=== PATIENT | female | born 1950 | race American Indian/Alaskan Native ===

== ENCOUNTER 2019-05-17 09:10 | Outpatient (CLI) | payer MEDICARE ==
--- NOTE | 2019-05-17 12:29 | PET Report ---
PET/CT HISTORY: R91.1. Lung cancer, pulmonary nodule TECHNIQUE: The patient's fasting blood glucose was 77. The patient weighed 205 lbs. The patient wa s injected with 13.5 mCi of FDG in the left hand at 1014 hours and imaging was started at 1104 hours. The patient was imaged from the skull base to the thighs. All CT scans at this location are perform ed using CT dose reduction for ALARA by means of automated exposure control. Images were reviewed on a workstation. COMPARISON: No comparison exam at this facility. FINDINGS: IMAGED BRAIN: [Physiologic FDG uptake] NECK: [Physiologic FDG uptake] CHEST WALL: [Physiologic FDG uptake] MEDIASTINUM: [Physiologic FDG uptake]. There is moderate cardiomegaly. No pericardial effusion or me diastinal mass. LUNGS: [Physiologic FDG uptake]. Mild chronic interstitial changes are present throughout both lungs . No suspicious pulmonary nodule is identified. There appears to be linear scarring or possibly a sut ure line in the posterior right lung, correlate with the patient's history. HEPATOBILIARY: [Physiologic FDG uptake]. Liver SUV measures 6.2. PANCREAS: [Physiologic FDG uptake SPLEEN: [Physiologic FDG uptake] KIDNEYS/BLADDER: [Physiologic FDG uptake] ADRENAL GLANDS: [Physiologic FDG uptake] GI/MESENTERY: [Physiologic FDG uptake]. There is moderate diverticulosis of the sigmoid colon. PELVIC VISCERA: [Physiologic FDG uptake]. Moderate uterine fibroid disease is noted. LYMPH NODES: [Physiologic FDG uptake] OSSEOUS STRUCTURES: [Physiologic FDG uptake]. Osteopenia and degenerative changes throughout the spi ne. No suspicious bony lesion or fracture. ADDITIONAL FINDINGS: [Bilateral common iliac vein stents and IVC filter are in place. IMPRESSION: Negative PET CT. No suspicious or hypermetabolic pulmonary lesion is identified. Signer Name: Kenyon Garcia Jr, MD Signed: 05/17/2019 12:25 PM Workstation Name: [id number]
== END 2019-05-17 09:11 | disposition home or self-care (01) ==
LOC: PET 09:10
DX: R91.1 Solitary pulmonary nodule (principal)
CPT/HCPCS: 78815; 82962; A9552